=== PATIENT | male | born 1990 | race Caucasian/White ===

== ENCOUNTER 2017-01-25 11:45 | Emergency (ER) | payer OTHER ==
--- NOTE | 2017-01-25 12:01 | EDM.PDOC ---
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 Denies any other injury. Pt continued to be active on his ankle until yesterday with the pain increased significantly. Onset Date: 01/17/17 Location: Reports: Lower Extremity, Left Quality: Reports: Ache Severity: Moderate Improves with: Reports: Immobilization, Rest Worsens with: Reports: Movement Associated Symptoms: Reports: No Other Symptoms - Related Data Allergies Allergy/AdvReac Type Severity Reaction Status Date / Time No Known Allergies Allergy Verified 01/25/17 11:52 Home Meds: Home Meds . [No Known Home Meds] 01/25/17 [History] Past Medical History - Past Health History Medical/Surgical History: Denies Medical/Surgical History Social & Family History - Family History Family Medical History: Noncontributory - Living Situation & Occupation Occupation: Employed Review of Systems - Review of Systems Review Of Systems: ROS reveals no pertinent complaints other than HPI. ED EXAM, GENERAL - Physical Exam Exam: See Below Exam Limited By: No Limitations General Appearance: Alert, WD/WN, No Apparent Distress Head: Atraumatic, Normocephalic Neck: Normal Inspection Respiratory/Chest: No Respiratory Distress Cardiovascular: Normal Peripheral Pulses Back Exam: Normal Inspection Extremities: Normal Range of Motion (with subjective report of pain left ankle) , Normal Capillary Refill, Joint Swelling (mild at left ankle), Other (no visible bruising, skin is intact). No: Lashawn's Sign, Leg Pain Neurological: Alert, Oriented, CN II-XII Intact, Normal Cognition, No Motor/ Sensory Deficits Psychiatric: Normal Affect, Normal Mood Skin Exam: Warm, Dry, Intact, Normal Color, No Rash Course - Orders/Labs/Meds Orders: Active Orders 24 hr Category Date Time Status Ankle Min 3V Lt [CR] Urgent Exams 01/25/17 11:58 Ordered - Radiology Interpretation Free Text/Narrative:: Xray left ankle: no fracture, see Rad. report. Departure - Departure Time of Disposition: 12:18 Disposition: Home, Self-Care 01 Condition: good Clinical Impression: Ankle sprain Qualifiers: Encounter type: initial encounter Involved ligament of ankle: unspecified ligament Laterality: left Qualified Code(s): S93.402A - Sprain of unspecified ligament of left ankle, initial encounter - Discharge Information Instructions: Ankle Sprain, [id number] Forms: ED Department Discharge Additional Instructions: Rest, ice pack, and elevate left ankle to reduce pain and swelling. No running, jumping, climbing, or prolonged standing/walking for 10 days. Use left ankle air splint as needed for 10 days. Follow up in clinic in 7 to 10 days for recheck. Rx: Ibuprofen 800mg - My Orders Last 24 Hours: My Active Orders 01/25/17 11:58 Ankle Min 3V Lt [CR] Urgent - Assessment/Plan Last 24 Hours: My Active Orders 01/25/17 11:58 Ankle Min 3V Lt [CR] Urgent
[2017-01-25] MEDS ORDERED: Ibuprofen 800 MG Tab PO ONE (12:20)
--- NOTE | 2017-01-25 12:47 | CR ---
History: 26-year-old male injured left ankle Interpretation: Mild soft tissue swelling. No sign of left ankle fracture (acute or healing) or ankle joint dislocation.
[2017-01-25 14:16] VITALS: BP 145/84
== END 2017-01-25 12:32 | disposition home or self-care (01) ==
LOC: DL.ED 11:45
DX: S93.402A Sprain of unspecified ligament of left ankle, initial encounter (principal); X50.1XXA Overexertion from prolonged static or awkward postures, initial encounter
CPT/HCPCS: 73610-LT; 99283